=== PATIENT | male | born 1960 | race Caucasian/White ===

== ENCOUNTER 2021-03-04 12:31 | Emergency (ER) | payer OTHER ==
[~2021-03-04 12:31] MED LIST: AUGMENTIN 875-1 EACH PO; CODEINE-GUAIFE473 ML PO; MUCINEX D ER 61 EACH PO
[2021-03-04] MEDS ORDERED: PREDNISONE50 MG PO (15:10)
[2021-03-04] MEDS ORDERED: FLEXERIL PO (15:10)
[2021-03-04] MEDS ORDERED: VOLTAREN GEL 1% TOP (15:10)
== END 2021-03-04 15:41 | disposition home or self-care (01) ==
LOC: ER1 12:31
DX: M54.5 Low back pain (principal); M25.552 Pain in left hip; I10 Essential (primary) hypertension; E78.5 Hyperlipidemia, unspecified; Z88.8 Allergy status to other drugs, medicaments and biological substances; Z79.899 Other long term (current) drug therapy
CPT/HCPCS: 72100; 96372; 99284; J1100; J1885

== ENCOUNTER 2021-03-12 13:50 | Emergency (ER) | payer OTHER ==
[~2021-03-12 13:50] MED LIST changes: +FLEXERIL PO; +PREDNISONE50 MG PO; +VOLTAREN GEL 1% TOP
[2021-03-12] MEDS ORDERED: CELECOXIB200 MG PO (17:01)
== END 2021-03-12 15:20 | disposition home or self-care (01) ==
LOC: ER1 13:50
DX: M54.5 Low back pain (principal); G89.29 Other chronic pain; I10 Essential (primary) hypertension; E78.5 Hyperlipidemia, unspecified; Z88.8 Allergy status to other drugs, medicaments and biological substances; Z79.899 Other long term (current) drug therapy
CPT/HCPCS: 96372; 99283; J1100; J2270

== ENCOUNTER 2021-03-17 14:26 | Emergency (ER) | payer OTHER ==
[~2021-03-17 14:26] MED LIST changes: +CELECOXIB200 MG PO
== END 2021-03-17 17:45 | disposition home or self-care (01) ==
LOC: ER1 14:26
DX: M53.3 Sacrococcygeal disorders, not elsewhere classified (principal); G89.29 Other chronic pain; I10 Essential (primary) hypertension
CPT/HCPCS: 73502; 96372; 99283; J1100; J1885

== ENCOUNTER 2021-04-07 12:20 | Emergency (ER) | payer OTHER | END 2021-04-07 14:53 | disposition home or self-care (01) | LOC: ER1 12:20 | DX: M54.42 Lumbago with sciatica, left side (principal); I10 Essential (primary) hypertension; Z88.8 Allergy status to other drugs, medicaments and biological substances; Z79.899 Other long term (current) drug therapy | CPT/HCPCS: 96372; 99283; J2270; J2360 ==

== ENCOUNTER 2022-03-08 19:26 | Emergency (ER) | payer BC | END 2022-03-08 21:52 | disposition home or self-care (01) | LOC: ER1 19:26 | DX: M65.4 Radial styloid tenosynovitis [de Quervain] (principal); I10 Essential (primary) hypertension | CPT/HCPCS: 29125; 73110; 99283 ==

== ENCOUNTER 2022-04-17 14:14 | Emergency (ER) | payer BC ==
[2022-04-17 15:31] LABS: HEMOGLOBIN 13.9 gm/dl (14.0-17.5); RED BLOOD COUNT 4.56 M/UL (4.20-5.50); WHITE BLOOD COUNT 6.5 K/UL (4.5-11.0)
[2022-04-17 15:53] LABS: BUN/CREATININE RATIO 16 (0-10)
== END 2022-04-17 16:27 | disposition home or self-care (01) ==
LOC: ER1 14:14
PROVIDERS: Physician Assistant
DX: N13.2 Hydronephrosis with renal and ureteral calculous obstruction (principal); N40.0 Benign prostatic hyperplasia without lower urinary tract symptoms
CPT/HCPCS: 80053; 81001; 85007; 85027; 96374; 99284; J1885